=== PATIENT | female | born 1935 | race Caucasian/White ===

== ENCOUNTER 2016-11-23 21:02 | Observation (INO) ==
[2016-11-23 21:38] LABS: Basophils # 0.1 K/mcL (0.0-0.2); Basophils % 0.9 %; Eosinophils # 0.2 K/mcL (0.0-0.6); Eosinophils % 3.8 %; Hematocrit 38.7 % (35.3-44.9); Hemoglobin 12.6 g/dL (11.5-15.4); Immature Granulocytes % 0.3 % (0-4); Lymphocytes # 1.9 K/mcL (0.6-4.6); Lymphocytes % 33.3 %; Mean Corpuscular HGB Conc 32.6 g/dL (31.6-35.5); Mean Corpuscular Volume 92.1 fL (83.0-100.0); Mean Platelet Volume 10.4 fL (9.4-12.4); Monocytes # 0.5 K/mcL (0.0-1.3); Monocytes % 8.4 %; Neutrophils # 3.1 K/mcL (1.6-8.9); Platelet Count 126 K/mcL (140-400); Red Cell Distribution Width 14.6 % (11.5-14.5); Segmented Neutrophils % 53.3 %
[2016-11-23 21:45] LABS: INR 1.3; Prothrombin Time 13.9 Seconds (9.4-12.1)
[2016-11-23 21:47] LABS: Activated Partial Thrombo Time 27.3 Seconds (26.0-36.0)
[2016-11-23 21:52] LABS: Albumin 3.5 g/dL (3.5-5.0); Albumin/Globulin Ratio 1.1 (1.1-2.2); Bilirubin,Total 0.7 mg/dL (0.2-1.2); Calcium 9.3 mg/dL (8.6-10.8); Globulin 3.2 g/dL (2.4-3.5); Total Protein 6.7 g/dL (6.0-8.3)
[2016-11-23 21:53] LABS: Potassium 4.6 mEq/L (3.5-4.5)
--- NOTE | 2016-11-23 22:55 | Emergency Department Note ---
Disposition Clinical Impression: Chest pain Disposition: Admitted As Inpatient Condition: Fair Chest Pain HPI - General Chief Complaint: ED Chest Pain Stated Complaint: Chest Pain radiating into back Time Seen by Provider: 11/23/16 21:12 Source: patient Limitations: no limitations Vital Signs Reviewed: Yes Nursing Notes Reviewed: Yes - History of Present Illness HPI Narrative: Patient complains of chest pain that started earlier today. Patient states feels like the pain is radiating to her back. Patient denies shortness of breath denies fevers and chills. Patient has numbness and tingling. Patient took 2 nitros at home with no improvement or symptoms such presents for evaluation. She denies dizziness associated, denies any aggravating alleviating factors. Severity scale (1-10): 8 - Related Data Home Medications Medication Instructions Recorded Confirmed Aspirin 325 mg PO DAILY 11/23/16 11/23/16 Atorvastatin Calcium [Lipitor] 20 mg PO HS 11/23/16 11/23/16 Cholecalciferol (D-3) [Vitamin D] 1,000 unit PO DAILY 11/23/16 11/23/16 HYDROcodone/Acet 10/325 mg [[place] 1 tab PO Q6H PRN 11/23/16 11/23/16 10-325 mg] Isosorbide MONOnitrate (24 HR) 60 mg PO BID 11/23/16 11/23/16 [Imdur] Levothyroxine Sodium 100 mcg PO QAM 11/23/16 11/23/16 Meclizine [Antivert] 12.5 mg PO TID PRN 11/23/16 11/23/16 Nitroglycerin [Nitroglycerin] 0.4 mg SL Q5M PRN 11/23/16 11/23/16 Pantoprazole Sodium [Protonix] 40 mg PO QAM 11/23/16 11/23/16 Spironolactone [Aldactone] 25 mg PO Q48H 11/23/16 11/23/16 Tizanidine HCl [Tizanidine HCl] 2 mg PO HS PRN 11/23/16 11/23/16 Ubidecarenone/Vit E Acetate [Co 1 each PO BID 11/23/16 11/23/16 Q-10 100 mg Softgel] Vit A/C/E AC/Znox/Cupric Oxide 1 each PO DAILY 11/23/16 11/23/16 [Eye Vitamin-Minerals Tablet] Allergies Allergy/AdvReac Type Severity Reaction Status Date / Time codeine Allergy Hives Verified 11/23/16 21:05 iv dye Allergy Anaphylaxis Uncoded 11/23/16 21:05 All systems ED: reviewed and negative except as stated. Chest Pain PMH - Past Medical History Medical history: Reports: coronary artery disease, hyperlipidemia, hypertension , myocardial infarction, renal disease, thyroid disease Psychiatric history: Reports: no psych history - Social History Smoking Status: Never smoker Alcohol use: Reports: rarely Drug use: Reports: none Physical Exam - General Limitations: no limitations General appearance: alert - Head Head exam: atraumatic, normocephalic, normal inspection - Eye Eye exam: Present: normal appearance, PERRL, EOMI - ENT ENT exam: normal exam, normal oropharynx, mucous membranes moist - Neck Neck exam: Present: normal inspection, full ROM, trachea midline - Chest Chest inspection: Present: normal inspection, symmetric chest wall rise - Respiratory Respiratory exam: Present: normal lung sounds bilaterally - Cardiovascular Cardiovascular exam: Present: regular rate, normal rhythm, normal heart sounds - Abdominal Exam Abdominal exam: Present: soft, Non-Tender. Absent: tenderness, distention, guarding, rebound, rigidity - Extremities Exam Extremities exam: Present: normal inspection, full ROM. Absent: tenderness, pedal edema - Back Exam Back exam: Present: normal inspection, full ROM. Absent: tenderness - Neurological Exam Neurological exam: Present: alert, oriented X3 - Psychiatric Psychiatric exam: Present: normal affect, normal mood - Skin Skin exam: Present: warm, dry, intact, normal color Course Vital Signs Temperature 97.6 F 11/23/16 21:05 Pulse Rate 76 11/23/16 21:05 Respiratory Rate 20 11/23/16 21:05 Blood Pressure 159/79 11/23/16 21:05 O2 Sat by Pulse Oximetry 97 11/23/16 21:05 Temperature 97.6 F 11/23/16 21:05 Pulse Rate 76 11/23/16 21:05 Respiratory Rate 14 11/24/16 00:28 Blood Pressure 102/56 11/24/16 00:28 O2 Sat by Pulse Oximetry 97 11/23/16 21:05 Oxygen Delivery Oxygen Delivery Room Air Chest Pain - Differential Diagnosis Likely: pneumothorax, stable angina, atypical chest pain, chest pain - Lab Data Lab results reviewed: Yes I reviewed the patient's lab results. Result diagrams: 11/23/16 21:30 11/23/16 21:30 Lab Results 11/23/16 11/23/16 11/23/16 Range/Units 21:30 21:30 21:30 WBC 5.8 (4.3-11.1) K/mcL RBC 4.20 (3.82-4.97) M/mcL Hgb 12.6 (11.5-15.4) g/dL Hct 38.7 (35.3-44.9) % MCV 92.1 (83.0-100.0) fL MCH 30.0 (28.0-33.3) pg MCHC 32.6 (31.6-35.5) g/dL RDW 14.6 H (11.5-14.5) % Plt Count 126 L (140-400) K/mcL MPV 10.4 (9.4-12.4) fL Immature Gran % 0.3 (0-4) % Seg Neutrophils % 53.3 % Lymphocytes % 33.3 % Monocytes % 8.4 % Eosinophils % 3.8 % Basophils % 0.9 % Neutrophils # 3.1 (1.6-8.9) K/mcL Lymphocytes # 1.9 (0.6-4.6) K/mcL Monocytes # 0.5 (0.0-1.3) K/mcL Eosinophils # 0.2 (0.0-0.6) K/mcL Basophils # 0.1 (0.0-0.2) K/mcL PT 13.9 H (9.4-12.1) Seconds INR 1.3 APTT 27.3 (26.0-36.0) Seconds Sodium 135 L (136-145) mEq/L Potassium 4.6 H (3.5-4.5) mEq/L Chloride 104 (98-109) mEq/L Carbon Dioxide 22 (19-29) mEq/L BUN 27 H (7-20) mg/dL Creatinine 1.82 H (0.57-1.11) mg/dL Est GFR ( Amer) 32 L (> 60) Est GFR (Non-Af Amer) 27 L (> 60) BUN/Creatinine Ratio 15 (6-26) Glucose 117 H (70-99) mg/dL Calculated Osmolality 286 (280-300) Calcium 9.3 (8.6-10.8) mg/dL Total Bilirubin 0.7 (0.2-1.2) mg/dL AST 28 (5-34) Units/L ALT 16 (0-55) Units/L Alkaline Phosphatase 65 (38-126) Units/L Troponin I (0-0.03) ng/mL Serum Total Protein 6.7 (6.0-8.3) g/dL Albumin 3.5 (3.5-5.0) g/dL Globulin 3.2 (2.4-3.5) g/dL Albumin/Globulin Ratio 1.1 (1.1-2.2) Lipase 19 (8-78) Units/L / Range/Units 21:30 WBC (4.3-11.1) K/mcL RBC (3.82-4.97) M/mcL Hgb (11.5-15.4) g/dL Hct (35.3-44.9) % MCV (83.0-100.0) fL MCH (28.0-33.3) pg MCHC (31.6-35.5) g/dL RDW (11.5-14.5) % Plt Count (140-400) K/mcL MPV (9.4-12.4) fL Immature Gran % (0-4) % Seg Neutrophils % % Lymphocytes % % Monocytes % % Eosinophils % % Basophils % % Neutrophils # (1.6-8.9) K/mcL Lymphocytes # (0.6-4.6) K/mcL Monocytes # (0.0-1.3) K/mcL Eosinophils # (0.0-0.6) K/mcL Basophils # (0.0-0.2) K/mcL PT (9.4-12.1) Seconds INR APTT (26.0-36.0) Seconds Sodium (136-145) mEq/L Potassium (3.5-4.5) mEq/L Chloride (98-109) mEq/L Carbon Dioxide (19-29) mEq/L BUN (7-20) mg/dL Creatinine (0.57-1.11) mg/dL Est GFR ( Amer) (> 60) Est GFR (Non-Af Amer) (> 60) BUN/Creatinine Ratio (6-26) Glucose (70-99) mg/dL Calculated Osmolality (280-300) Calcium (8.6-10.8) mg/dL Total Bilirubin (0.2-1.2) mg/dL AST (5-34) Units/L ALT (0-55) Units/L Alkaline Phosphatase (38-126) Units/L Troponin I 0.02 (0-0.03) ng/mL Serum Total Protein (6.0-8.3) g/dL Albumin (3.5-5.0) g/dL Globulin (2.4-3.5) g/dL Albumin/Globulin Ratio (1.1-2.2) Lipase (8-78) Units/L - Radiology Data Radiology results reviewed: Yes I reviewed the patient's radiology results. Chest X-Ray 11/23/16 21:14 IMPRESSION: No acute disease. D/ / Cornelius Lara MD / Cornelius Lara MD Interpreting Provider: Cornelius Lara MD - EKG Data EKG attestation: Yes I reviewed and interpreted this EKG. EKG shows normal: sinus rhythm Rate: normal Rhythm: NSR
[2016-11-24] MEDS ORDERED: Nitroglycerin 0.4 MG TAB.SUBL SL ONE (02:04)
[2016-11-24] MEDS ORDERED: *HR* OxyCODONE Immed Rel 5 MG TABLET PO ONE (02:43)
[2016-11-24] MEDS ORDERED: Nitroglycerin 0.4 MG TAB.SUBL SL PRN (02:44)
[2016-11-24] MEDS ORDERED: tiZANidine 4 MG TABLET PO PRN (02:44)
[2016-11-24] MEDS ORDERED: *HR* HYDROcodone/Acet 10/325 mg TABLET PO PRN (02:44)
[2016-11-24] MEDS ORDERED: Naloxone 0.4 MG/ML INJ IVP PRN (02:47)
--- NOTE | 2016-11-24 03:11 | Internal Med History&Physical ---
Date of Encounter: 11/24/16 Time of Encounter: 03:09 Assessment and Plan (1) Chest pain Current visit: Yes Status: Acute Atypical chest pain. Initial troponin is negative. Patient has a significant past medical history coronary artery disease and risc factors. Will monitor on telemetry. Trend troponins. If troponins are negative, will request for a stress test. Qualifiers: Chest pain type: unspecified Qualified Code(s): R07.9 - Chest pain, unspecified (2) CAD (coronary artery disease) Current visit: Yes Status: Chronic Continue aspirin, statin Qualifiers: Coronary Disease-Associated Artery/Lesion type: [place] artery [place] vs. transplanted heart: [place] heart Associated angina: angina presence unspecified Qualified Code(s): I25.10 - Atherosclerotic heart disease of [place] coronary artery without angina pectoris (3) Hypertension Current visit: Yes Status: Chronic Continue home medications. BP stable Qualifiers: Hypertension type: essential hypertension Qualified Code(s): I10 - Essential (primary) hypertension (4) Hyperlipemia Current visit: Yes Status: Chronic Continue statin. check lipid panel Qualifiers: Hyperlipidemia type: unspecified Qualified Code(s): E78.5 - Hyperlipidemia , unspecified (5) Carotid bruit present Current visit: Yes Status: Acute Pt reports that she is being monitored by her PCP Qualifiers: Laterality: left Qualified Code(s): R09.89 - Other specified symptoms and signs involving the circulatory and respiratory systems Internal Medicine - H&P: HPI Chief complaint: chest pain Admitted From: Emergency Dept Plans for Post Hospital Care: Home History of present illness: Ms. Agee is a 81 year old female with past medical history significant for coronary artery disease s/p CABG / stent placement / pacemaker placement, hyperlipidemia, hypertension, CKD - Patient complains of chest pain that started on the morning of 11/23/16. Pain across upper chest, like pressure, 5/ 10 in severity, going to the back. Pt reports that the pain was continuous, but getting worse and presented to the hospital. Patient took 2 nitroglycerine tablets at home with no improvement of symptoms, hydrocodone helped the pain. She denies associated nausea, vomiting, sweating, shortness of breath. She denies cough, fever, chills, abdominal pain, dysuria, hematuria, bowel problems. She reports that she moved her house recently and was lifting box. She was evaluated in the emergency department, initial troponin was negative. Chest x-ray was negative. She is admitted to the hospitalist service for further workup and management. Past Med Surg Social Fam HX - Past Medical History Medical history: coronary artery disease, hyperlipidemia, hypertension, myocardial infarction, renal disease, thyroid disease Psychiatric history: no psych history - Social History Smoking Status: Never smoker Smokeless Tobacco Status: No Alcohol use: rarely Drug use: none - Family History Father Living Status: Age at : 97 Cause of : Unknown Hx Family Cardiac Disorders: Yes (Unknown specific disease) Internal Medicine - H&P: Meds Aspirin 325 mg PO DAILY 11/23/16 [History] Atorvastatin Calcium [Lipitor] 20 mg PO HS 11/23/16 [History] Cholecalciferol (D-3) [Vitamin D] 1,000 unit PO DAILY 11/23/16 [History] HYDROcodone/Acet 10/325 mg [[place] 10-325 mg] 1 tab PO Q6H PRN 11/23/16 [History] Isosorbide MONOnitrate (24 HR) [Imdur] 60 mg PO BID 11/23/16 [History] Levothyroxine Sodium 100 mcg PO QAM 11/23/16 [History] Meclizine [Antivert] 12.5 mg PO TID PRN 11/23/16 [History] Nitroglycerin [Nitroglycerin] 0.4 mg SL Q5M PRN 11/23/16 [History] Pantoprazole Sodium [Protonix] 40 mg PO QAM 11/23/16 [History] Spironolactone [Aldactone] 25 mg PO Q48H 11/23/16 [History] Tizanidine HCl [Tizanidine HCl] 2 mg PO HS PRN 11/23/16 [History] Ubidecarenone/Vit E Acetate [Co Q-10 100 mg Softgel] 1 each PO BID 11/23/16 [ History] Vit A/C/E AC/Znox/Cupric Oxide [Eye Vitamin-Minerals Tablet] 1 each PO DAILY [History] Allergies codeine Allergy (Verified 11/23/16 21:05) Hives iv dye Allergy (Uncoded 11/23/16 21:05) Anaphylaxis All Systems PM: A 10-system review of systems was performed and is negative for pertinent findings except as documented above in the HPI. - Constitutional Vitals: Temp Pulse Resp BP Pulse Ox 97.5 F L 64 14 137/80 94 11/24/16 01:39 11/24/16 01:39 11/24/16 01:39 11/24/16 01:39 11/24/16 01:39 Exam: General: Not in acute distress at the time of my evaluation HEENT: Oral mucosa is moist. No conjunctival palor or scleral icterus Neck: No obvious neck swellings Lungs: Clear to auscultation Cardiac: Regular rate and rhythm. No significant murmurs. Left carotid bruit present. No chest wall tenderness present Abdomen: Soft, non tender. Bowel sounds present Genitourinary: No hinton catheter Neurological: Alert and oriented. No gross localizing deficits Psych: Not aggressive or agitated Extremities: B/L leg edema present Skin: No generalized rash Internal Med - H&P Results - Labs CBC & Chem 7: 11/23/16 21:30 11/23/16 21:30 - EKG Data -: EKG Interpreted by Myself EKG shows normal: sinus rhythm - EKG Data EKG comments: T wave inversion in lead III 11/24/16 03:12 - Impressions ITS Impressions Chest X-Ray 11/23/16 21:14 IMPRESSION: No acute disease. D/ / Cornelius Lara MD / Cornelius Lara MD Interpreting Provider: Cornelius Lara MD - VTE Reasons for not Prescribing Prophylaxis: Treatment not Indicated - Low risk for VTE
[2016-11-24 05:03] LABS: Calcium 8.9 mg/dL (8.6-10.8); Chol/HDL Ratio 2.4 (0-4.9); Magnesium 1.5 mg/dL (1.6-2.6); Potassium 4.3 mEq/L (3.5-4.5)
[2016-11-24] MEDS ORDERED: Regadenoson 0.4 MG/5 ML SYRINGE IVP ONE (06:31)
[2016-11-24] MEDS ORDERED: Spironolactone 25 MG TABLET PO SCH (09:00)
[2016-11-24] MEDS ORDERED: Cholecalciferol (D-3) 1,000 UNIT TABLET PO SCH (09:00)
[2016-11-24] MEDS ORDERED: Isosorbide MONOnitrate (24 HR) 60 MG TAB.ER.24H PO SCH (09:00)
[2016-11-24] MEDS ORDERED: Aspirin 325 MG TABLET PO SCH (09:00)
--- NOTE | 2016-11-24 12:08 | Nuclear Medicine Stress Report ---
Regadenoson Nuclear Stress Name: Shahana Agee Date of Study: 11/24/2016 Date: 1935 Ht: 60.0 in Medical Record#: [id number] Age: 81 Wt: 154.0 lb Gender: Female Order #: [id number] Location: [facility] Room: [facility] Supervising Provider: Yakov Schneider CNP Reading Physician: Clayton Glynn MD, [facility] Ordering Physician: Anna York CNP Primary Care Physician: Clayton Peres MD Stress Technologist: Diandra Syed RRT Director [employer]: Sreekanth Harrison Indications: Chest Pain Impression: Baseline elevated blood pressure (178/80). Normal hemodynamic responses to pharmacologic stress. No significant ECG changes with regadenoson. Gated LVEF > 70%. Perfusion imaging was negative for ischemia or infarct. History: Hypertension Hypercholesteremia Prior PCI History of Coronary Artery Bypass Surgery Stress Test Summary: Stress Test Type: Pharmacologic Regadenoson 0.4mg/5ml given IV Baseline Information: Initial Heart Rate: 69 Blood Pressure: 178/80 Stress Information: Test Terminated Due to (primary): As per protocol Maximum Blood Pressure: 160/66 Maximum Heart Rate: 83 Percent Maximum Heart Rate Achieved: 61 Double Product: [id number] Symptoms: Chest pain Nuclear Summary: SPECT myocardial perfusion imaging using Tc99m Sestamibi given intravenously was performed at rest and following cardiac stress testing. The resting images were obtained following initial dose of 11.5 mCi. Following stress an additional dose of 30 mCi was given at peak exercise or 30 seconds post regadenoson infusion. Findings: Stress Note * Resting ECG demonstrated sinus rhythm, possible anterior SD (age undetermined). * No baseline arrhythmias were noted. * Patient reported chest pain with regadenoson. This is a non-specific finding. * No arrhythmias were noted during stress. * No significant ECG changes with regadenoson. Hemodynamic responses * Baseline elevated blood pressure (178/80). Normal hemodynamic responses to pharmacologic stress. Study Quality * Study quality is average. Gated EF > 70% * Gated LVEF > 70%. Left Ventricle * The left ventricle is not dilated. * Normal Segmental Perfusion in rest. * Normal segmental perfusion in stress. TID * No evidence of transient ischemic dilatation. Updated by Clayton Glynn MD, FACC on 11/24/2016 12:03:07 PM electronically signed on 11/24/2016 12:03:42 PM with status of Final
[2016-11-24 14:54] VITALS: BP 147/71
--- NOTE | 2016-11-24 15:44 | Discharge Summary ---
Date of Encounter: 11/24/16 Time of Encounter: 14:30 - Discharge Diagnosis (1) Chest pain Priority: Primary Status: Resolved Comments: Patient denied chest pain while admitted. Chest x-ray negative. Troponins negative. Stress test negative. ACS ruled out. Qualifiers: Chest pain type: unspecified Qualified Code(s): R07.9 - Chest pain, unspecified (2) Costochondritis, acute Priority: Primary Status: Suspected (3) CKD (chronic kidney disease) stage 3, GFR 30-59 ml/min Priority: Secondary Status: Chronic Comments: Patient has chronic kidney disease stage 3/4 and she has been alternating between these 2 stages. Renal functioning improved and was consistent with her baseline on day of discharge. Follow-up outpatient (4) CAD (coronary artery disease) Priority: Secondary Status: Chronic (5) Hypertension Priority: Secondary Status: Chronic Comments: Controlled for the most part, borderline hypertensive at times however no changes to her home medications indicated. Recommend daily blood pressure checks at home and following up outpatient. Qualifiers: Hypertension type: essential hypertension Qualified Code(s): I10 - Essential (primary) hypertension (6) Hyperlipemia Priority: Secondary Status: Chronic Comments: Lipid panel unremarkable. Recommend continuing her statin and low cholesterol diet Qualifiers: Hyperlipidemia type: unspecified Qualified Code(s): E78.5 - Hyperlipidemia , unspecified (7) Carotid bruit present Priority: Secondary Status: Chronic Comments: Follow-up outpatient Qualifiers: Laterality: left Qualified Code(s): R09.89 - Other specified symptoms and signs involving the circulatory and respiratory systems - Discharge Medications Home Medications: Aspirin 325 mg PO DAILY 11/23/16 [History] Atorvastatin Calcium [Lipitor] 20 mg PO HS 11/23/16 [History] Cholecalciferol (D-3) [Vitamin D] 1,000 unit PO DAILY 11/23/16 [History] HYDROcodone/Acet 10/325 mg [[place] 10-325 mg] 1 tab PO Q6H PRN 11/23/16 [History] Isosorbide MONOnitrate (24 HR) [Imdur] 60 mg PO BID 11/23/16 [History] Levothyroxine Sodium 100 mcg PO QAM 11/23/16 [History] Meclizine [Antivert] 12.5 mg PO TID PRN 11/23/16 [History] Nitroglycerin 0.4 mg SL Q5M PRN 11/23/16 [History] Pantoprazole Sodium [Protonix] 40 mg PO QAM 11/23/16 [History] Spironolactone [Aldactone] 25 mg PO Q48H 11/23/16 [History] Tizanidine HCl 2 mg PO HS PRN 11/23/16 [History] Ubidecarenone/Vit E Acetate [Co Q-10 100 mg Softgel] 1 each PO BID 11/23/16 [ History] Vit A/C/E AC/Znox/Cupric Oxide [Eye Vitamin-Minerals Tablet] 1 each PO DAILY [History] Allergies/Adverse Reactions: Allergies codeine Allergy (Verified 11/23/16 21:05) Hives iv dye Allergy (Uncoded 11/23/16 21:05) Anaphylaxis Procedures/tests Complete & Pending: Procedures Performed prior 72 hours Category Date Time Status NM agapito perf SPECT multi [NM] Routine Exams 11/24/16 02:52 Taken SP pharm nuclear stress Routine Y 11/24/16 07:45 Completed Date of admission: 11/24/16 00:13 Primary care physician: Angeles Fernandes Discharging clinician: Anna York Anticipated date of discharge: 11/24/16 - Patient Status Disposition: Home, Self-Care Condition: Fair Functional capacity at discharge: independent ambulation Overall status at discharge: patient is back to baseline - Discharge Instructions Follow Up With: Clayton Peres MD [Primary Care Provider] - 11/28/16 9:00 am Additional Instructions: Follow-up with primary care provider as scheduled - Diet and Activity Activity: increase activity as tolerated Diet: low fat, low cholesterol, low salt diet Hospital course: Ms. Agee is a 81 year old female with past medical history of CAD status post CABG and stent placement as well as pacemaker, hyperlipidemia, hypertension , chronic kidney disease stage 3/4. Patient presented to the emergency department chief complaint chest pain located across her upper chest and pressure-like in nature and radiating to her back. Patient stated the pain was continuous but had gotten worse which prompted her presentation to the emergency department. She took 2 nitroglycerin tablets at home with no improvement in her symptoms. She also took hydrocodone which helped with her pain. She denied associated nausea, vomiting, sweating, or shortness of breath. She states that she recently moved into her house and was lifting heavy boxes. Workup in the emergency department unremarkable. Chest x-ray negative. Patient was admitted to the hospitalist service for further evaluation and management. Troponins were negative. Patient had a nuclear stress test is negative for ischemia or infarct and revealed an ejection fraction greater than 70%. Patient denied chest pain or shortness of breath throughout this admission. Patient did complain of her chronic left foot pain. Renal functioning remained stable. Acute coronary syndrome ruled out. Likely musculoskeletal etiology secondary to moving boxes. She is discharged home in stable condition with close outpatient follow-up recommended. ITS Impressions Chest X-Ray 11/23/16 21:14 IMPRESSION: No acute disease. D/ / Cornelius Lara MD / Cornelius Lara MD Interpreting Provider: Cornelius Lara MD Regadenoson Nuclear stress test impression: Baseline elevated blood pressure ( 178/80). Normal hemodynamic response to pharmacologic stress. No significant ECG changes with regadenoson. Gated ejection fraction greater than 70%. Perfusion imaging was negative for ischemia or infarct. - Time Spent with Patient Total time spent providing and/or coordinating discharge services: - Constitutional Vitals: Temp Pulse Resp BP Pulse Ox 97.5 F L 75 17 147/71 95 11/24/16 14:53 11/24/16 14:53 11/24/16 14:53 11/24/16 14:53 11/24/16 14:53 General appearance: Present: A&O X 3, pleasant, no acute distress, answers questions appropriately - Head Head exam: Present: atraumatic, normocephalic - Eye Eye exam: Present: PERRL, conjuntiva pink, sclera anicteric Pupils: Present: PERRL - Neck Neck exam general surgery: Present: supple, trachea midline. Absent: lymphadenopathy - Respiratory Respiratory exam: Present: CTAB. Absent: accessory muscle use, rales, respiratory distress, rhonchi, wheezes - Cardiovascular Cardiovascular exam: Present: RRR, +S1, +S2. Absent: diastolic murmur, gallop, rubs, systolic murmur - GI/Abdominal GI/Abdominal exam: Present: normal bowel sounds, soft, no peritoneal signs. Absent: distended, tenderness - Extremities Exam Extremities exam: Present: warm, radial pulses palpable and symetrical. Absent : calf tenderness, cyanotic, pedal edema - Neurological Exam Neurological exam: Present: alert, CN II-XII intact, oriented X3, no focal deficits, strengths equal and symetr throughout. Absent: pronater drift, facial droop, speech deficit - Skin Skin exam: Present: dry, intact, normal color, warm - VTE Reasons for not Prescribing Prophylaxis: Treatment not Indicated - Low risk for VTE
--- NOTE | 2016-11-24 18:09 | Electrocardiograph Report ---
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
== END 2016-11-24 16:45 | disposition home or self-care (01) ==
LOC: EMEROO 21:02 → 3BNU 21:02
PROVIDERS: ADMIT Internal Medicine; ATTEND Nurse Practitioner Family